=== PATIENT | male | born 1950 | race Two or more races ===

== ENCOUNTER 2025-01-27 15:55 | Emergency (ER) | payer OTHER, SELFPAY ==
--- NOTE | ~2025-01-27 | XR_ITS ---
EXAMINATION: XR CHEST CLINICAL INFORMATION: CP COMPARISON: None available. TECHNIQUE: 2 views of the chest were obtained. FINDINGS: The cardiac, hilar, and mediastinal contours are normal. Lungs demonstrate mild linear atelectasis or scarring in the lingular segment. Lungs otherwise clear. There is no pneumothorax or pleural effusion. There is no focal osseous or soft tissue abnormality. XR/XR chest 2V IMPRESSION: Mild linear scarring or atelectasis in the lingula. Otherwise, no active disease. Electronically signed by: Shade Hanks MD 01/27/2025 04:46 PM EDT
--- NOTE | ~2025-01-27 | CT_ITS ---
CLINICAL HISTORY: L CP, cough CT chest with contrast Comparison: None Findings: The heart is normal size. The visualized thyroid and mediastinum are unremarkable. Lingular subsegmental atelectasis is noted. Mild dependent changes are present within the lungs bilaterally. The visualized upper abdomen is unremarkable. The bones are intact. IMPRESSION: 1. Unremarkable chest CT. This document has been electronically signed by: Romeo Franz MD, PHD on 01/28/2025 02:21:32
--- NOTE | 2025-01-27 15:58 | ECG_ITS ---
Test Reason : CP Blood Pressure : */* mmHG Vent. Rate : 73 BPM Atrial Rate : 73 BPM P-R Int : 290 ms QRS Dur : 86 ms QT Int : 366 ms P-R-T Axes : 37 -5 39 degrees QTcB Int : 403 ms Sinus rhythm with 1st degree A-V block Otherwise normal ECG No previous ECGs available Referred By: Glo Granados Electronically Signed By: LIZZIE DUVALL
[2025-01-27 16:09] VITALS: BP 138/68; PULSE 73; RESP 16; TEMP 36.9; O2SAT 98; BMI 30.7
--- NOTE | 2025-01-27 16:09 | ED.CHESTPAIN ---
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 He reports onset of left anterior chest pain at approximately 15:00 today while he was sitting down resting. He notices the pain to be worse with deep inspiration, cough, palpation of the chest, and with exertion while walking around. He does state that recently has been experiencing a nonproductive cough. He does state that since his arrival to the ED his pain has resolved, he does not currently have this pain. He denies headache, dizziness, lightheadedness, shortness of breath or difficulty breathing, nausea, vomiting, abdominal pain, fevers, chills. Related Data Allergies Allergy/AdvReac Type Severity Reaction Status Date / Time duloxetine Allergy Rash Verified 01/27/25 16:12 tramadol Allergy Rash Verified 01/27/25 16:12 Review of Systems Review of Systems: Yes all other systems are reviewed and are negative PMFSH Past Medical History Attestation statement: The following information was validated with the patient. Source: old records reviewed Social History Social History Smoked in Last 30 Days: No Use of substances other than those prescribed or required for medical reasons: No Advance Directives: No Advance Directives Information Provided: No Do you have a plan to hurt others: No Plan Physical Exam Vital Signs: Vital Signs: Last Vital Signs Temp 97.8 F 01/28/25 02:19 Pulse 60 01/28/25 02:19 Resp 17 01/28/25 02:19 BP 143/72 H 01/28/25 02:19 Pulse Ox 98 01/28/25 02:19 O2 Del Method Room Air 01/28/25 02:19 BMI result Body Mass Index 30.7 Appearance: Alert.?Oriented to person, place and time. No acute distress.?Normal affect. Eyes: Pupils equal, round and reactive to light.? ENT: Pharynx normal.?? Neck: Normal inspection.? Neck supple.??No JVD. CVS: Heart sounds normal. Normal heart rate and rhythm.? Pulses normal.?? Respiratory: No respiratory distress.? Lung sounds clear to auscultation bilaterally?? Abdomen: Soft and non-tender. Normoactive bowel sounds. No pulsatile mass.?? Skin: Skin warm and dry.? Normal skin color.? ?? Extremities: No lower extremity edema.? No calf ttp? Neuro: Moves all extremities spontaneously. Sensation intact bilaterally. CN II-XII intact. No focal neuro deficits. Ambulates with normal steady gait. Course Course Course Narrative: This is an RME: Additional HPI, ROS, PE not included below will be deferred to primary provider. RME assessment and note performed by: Glo Granados PA-C This is a 53-[id number]-[id number]-Greek speaking male, cardiac stent on plavix and aspirin , diabetes on trulicity, HLD, chronic back pain,who presents to the ER with complaints of chest pain which started today. Pain worsens with palpation and with inspiration. Plan: EKG, CXR, viral swabs, further ER eval needed. Reevaluation(s) Reevaluation #1: CBC reveals leukocytosis 15,900 which may be inflammatory/ reactive in nature, mild anemia not meeting transfusion criteria, no thrombocytopenia. No electrolyte derangement. No MELCHOR. Overall unremarkable LFTs. High sensitive troponin negative x2, EKG nonischemic as per MDM. Viral serologies are negative. CXR is without acute pathology. CT of the chest was obtained to exclude acute pulmonary etiology as cause for pain and was unremarkable. he has remained pain-free while in the emergency department. Feel he is stable for discharge at this time outpatient follow-up with primary care doctor as scheduled tomorrow. Medications Administered Discontinued Medications Generic Name Dose Route Start Last Admin Trade Name Freq PRN Reason Stop Dose Admin Sodium Chloride 1,000 mls @ 999 mls/hr 01/27/25 23:45 01/28/25 00:16 Ns IV 01/28/25 00:45 999 mls/hr .Q1H1M MARINE Administration Iohexol 65 ml 01/28/25 01:23 01/28/25 01:24 Iohexol 350 Mg/Ml 100 Ml Infus..Btl IV 01/28/25 01:24 65 ml ONCE ONE Administration Medical Decision Making Medical Decision Making MDM Narrative: Patient is a 74-year-old male with past medical history of anxiety, anemia of chronic disease, CAD with prior cardiac stenting on Plavix and aspirin, type 2 diabetes, hypertension, polymyalgia rheumatica, hyperlipidemia, GERD who presents to the emergency department for evaluation with complaint of chest pain. At the time of my evaluation chest pain has resolved, although he does report recent cough as well. differential diagnosis to include costochondritis, muscular strain, ACS, pneumonia, viral illness, bronchitis. No evidence of volume overload or shock on exam. EKG has been obtained and is without evidence of STEMI, no acute ischemic pathology. Low suspicion for acute pulmonary embolism, wells low risk. No trauma or injury no tracheal deviation. Benign abdominal examination, unlikely acute hepatobiliary etiology /gastrointestinal /pancreatic pathology. Will obtain CBC to evaluate for leukocytosis/ anemia, CMP and lipase to evaluate for abnormal electrolytes /abnormal renal function/ abnormal hepatic/biliary function, EKG and troponin to evaluate for ischemia/ACS. Chest x-ray to evaluate for consolidation/ infiltrate/ mass/ pulmonary congestion, and reassessment Differential Diagnosis Differential Diagnoses: The differential diagnosis associated with the presentation includes (See narrative above) Admission/Observation Consideration of admission/observation: Escalation of care including admission/observation considered (See narrative above and course narrative for further detail) Lab Data [facility] Lab Attestation statement: I reviewed the patient's lab results. 01/27/25 16:25 01/27/25 16:25 Labs: Lab Results 01/27/25 01/27/25 Range/Units 16:25 23:36 WBC 15.9 H (4.8-10.8) X10*3/uL RBC 4.03 L (4.60-5.80) X10*6/uL Hgb 12.8 L (14.0-18.0) g/dl Hct 36.2 L (42.0-52.0) % MCV 89.8 (80.0-98.0) fL MCH 31.8 (27.0-33.0) pg MCHC 35.4 (31.0-36.0) g/dl RDW 12.6 (11.0-16.0) % Plt Count 289 (160-400) X10*3/uL MPV 9.0 L (9.4-12.4) fL Immature Gran % (Auto) 0.8 H (0.0-0.4) % Neut % (Auto) 82.5 H (45-73) % Lymph % (Auto) 11.4 L (20-40) % [place] % (Auto) 5.2 (2-11) % Eos % (Auto) 0.0 (0-4) % Baso % (Auto) 0.1 (0-2) % Lymph # (Auto) 1.8 (1.2-4.9) X10*3/uL [place] # (Auto) 0.8 (0.1-1.2) X10*3/uL Eos # (Auto) 0.0 (0.0-0.4) X10*3/uL Baso # (Auto) 0.0 (0.0-0.2) X10*3/uL Abs Immat Gran (auto) 0.12 H (0.00-0.03) X10*3/uL Absolute Neuts (auto) 13.1 H (2.0-8.3) x10*3/uL Absolute Nucleated RBC 0.000 (0.0-0.012) X10*3/uL Nucleated RBC % (auto) 0.0 (0.0-0.2) /100WBC Sodium 138 (135-145) mmol/L Potassium 5.0 (3.3-5.1) mmol/L Chloride 107 (96-108) mmol/L Carbon Dioxide 25 (22-29) mmol/L Anion Gap 11 L (12-20) BUN 18 H (9-16) mg/dL Creatinine 1.11 (0.5-1.4) mg/dL Estim Creat Clear Calc 61.9 Estimated GFR > 60 Random Glucose 196 H (60-115) mg/dL Calcium 9.5 (8.4-10.2) mg/dL Magnesium 1.7 (1.6-2.6) mg/dL Total Bilirubin 0.4 (0.0-1.0) mg/dL Direct Bilirubin 0.1 (0.0-0.5) mg/dL AST 25 (5-37) U/L ALT 44 H (0-40) U/L Alkaline Phosphatase 63 (39-117) U/L Troponin I High Sens 2.9 < 2.7 (<3.5-35.0) ng/L Total Protein 7.1 (6.5-8.0) g/dL Albumin 4.3 (3.5-5.0) g/dL Influenza Type A (PCR) NEGATIVE (Negative) Influenza Type B (PCR) NEGATIVE (Negative) RSV RNA Qual (PCR) NEGATIVE (Negative) SARS-CoV-2 RNA (RT-PCR) NEGATIVE (Negative) Independent Interpretation I performed an independent interpretation of an: EKG ( EKG reveals a sinus rhythm with first-degree AV block, ventricular rate of 73, QTC 403, no ST-elevation.) Radiology Impression Discussion of test interpretation with radiology: I have reviewed the radiologist's reading. Radiologist Impression: 2 views of the chest were obtained. FINDINGS: The cardiac, hilar, and mediastinal contours are normal. Lungs demonstrate mild linear atelectasis or scarring in the lingular segment. Lungs otherwise clear. There is no pneumothorax or pleural effusion. There is no focal osseous or soft tissue abnormality. XR/XR chest 2V IMPRESSION: Mild linear scarring or atelectasis in the lingula. Otherwise, no active disease. CT chest with contrast Comparison: None Findings: The heart is normal size. The visualized thyroid and mediastinum are unremarkable. Lingular subsegmental atelectasis is noted. Mild dependent changes are present within the lungs bilaterally. The visualized upper abdomen is unremarkable. The bones are intact. IMPRESSION: 1. Unremarkable chest CT. Independent Historian Clinical information obtained from an independent historian. History obtained from or confirmed by: Spouse External Record Review External record reviewed: Outpatient record Chronic Conditions Patient?s care impacted by: Other ( See narrative above) Discharge Plan Discharge Clinical Impression: Atypical chest pain Patient Disposition: Home, Self-Care Instructions: Chest Pain (ED) Additional Instructions: Follow-up with your primary care doctor as scheduled tomorrow. Please make them aware that you were seen in the emergency department for chest pain. Return to emergency department any new or worsening symptoms or concerns. Referrals: Leeann Ramey MD [Primary Care Provider] - Print Language: Greek
[2025-01-27 16:31] LABS: MANUAL DIFF FLAG NO
[2025-01-27 16:38] LABS: Basophils Percent Auto 0.1 % (0-2); Hematocrit 36.2 % (42.0-52.0); Hemoglobin 12.8 g/dl (14.0-18.0); Imm Gran Abs Auto 0.12 X10*3/uL (0.00-0.03); Imm Gran Pct Auto 0.8 % (0.0-0.4); Lymphocytes Absolute Auto 1.8 X10*3/uL (1.2-4.9); Lymphocytes Percent Auto 11.4 % (20-40); Mean Corpuscular HGB Conc 35.4 g/dl (31.0-36.0); Mean Corpuscular Hemoglobin 31.8 pg (27.0-33.0); Mean Corpuscular Volume 89.8 fL (80.0-98.0); Monocytes Absolute Auto 0.8 X10*3/uL (0.1-1.2); Monocytes Percent Auto 5.2 % (2-11); Neutrophils Absolute Auto 13.1 x10*3/uL (2.0-8.3); Neutrophils Percent Auto 82.5 % (45-73); Platelet Count 289 X10*3/uL (160-400); Red Blood Count 4.03 X10*6/uL (4.60-5.80); Red Cell Distribution Width 12.6 % (11.0-16.0); White Blood Count 15.9 X10*3/uL (4.8-10.8)
[2025-01-27 17:08] LABS: Troponin-I High Sensitivity 2.9 ng/L (<3.5-35.0)
[2025-01-27 17:25] LABS: Albumin Level 4.3 g/dL (3.5-5.0); Alkaline Phosphatase 63 U/L (39-117); Anion Gap 11 (12-20); Aspartate Amino Transferase 25 U/L (5-37); Bilirubin Direct 0.1 mg/dL (0.0-0.5); Bilirubin Total 0.4 mg/dL (0.0-1.0); Blood Urea Nitrogen 18 mg/dL (9-16); Calcium 9.5 mg/dL (8.4-10.2); Carbon Dioxide 25 mmol/L (22-29); Chloride 107 mmol/L (96-108); Creatinine Clr Calc Pharmacy 61.9; Estimated Glomerular Filt Rate > 60; Glucose Random 196 mg/dL (60-115); Magnesium 1.7 mg/dL (1.6-2.6); Sodium 138 mmol/L (135-145); Total Protein 7.1 g/dL (6.5-8.0)
[2025-01-27 18:08] LABS: Alanine Aminotransferase 44 U/L (0-40)
[2025-01-27 18:12] LABS: Influenza A PCR NEGATIVE (Negative); Influenza B PCR NEGATIVE (Negative); Resp Syncy Virus RNA Qual PCR NEGATIVE (Negative); SARS COV2 PCR INHOUSE NEGATIVE (Negative)
[2025-01-27 22:02] VITALS: BP 147/73; PULSE 64; RESP 22; TEMP 36.6; O2SAT 98
--- OUTSIDE RECORDS SUMMARY | 2025-01-27 22:32 | XMS_ITS | Encounter Summary ---
Author Organization [facility] Address [address] [place] [address] Care Team Providers Care Delivery Room Supervisor Name Role Phone Leenan Ramey MD Primary Care Provider [phone] Reason for Visit * Reason Onset Date Comments Medication Problem 01/08/2025 Encounter Details Date Type Department Care Team ([facility] st Contact Info) Description 01/08/2025 Telephone Adult Medicine [address] [phone] Leeann Ramey MD [address] [place] [id number] Medication Problem Social History Tobacco Use Types Packs/Day Years Used Date Smoking Tobacco: Former Cigarettes 4 56.7 S tarted: 05/26/1968 Smokeless Tobacco: Never Alcohol Use Standard Drinks/Week Comments No 0 (1 standard drink = 0.6 oz pur e alcohol) Sex and Gender Information Value Date Recorded Sex Assigned at Not on file Legal Sex Male 5:42 PM EST Gender Identity Not on file Sexual Orientation Not on file documented as of this encounter Progress Notes * Lorraine Benitez RN - 01/14/2025 1:41 PM EDT I spoke to Tierra from [place], [place]. She asked for clearance documentation to be sentto their fax. I tried twice and the faxes didn't go through. I called back and was given an alternative number ([phone]). Faxed and confirmation received. * Aditi Carlos NP - 01/14/2025 10:19 AM EDT Patient may hold Plavix and aspirin if absolutely required for spinal injection and resume as soon as possible under the discretion of [facility] provider. * Lorraine Benitez RN - 01/13/2025 4:11 PM EDT Pt is having an injection and [facility]. They want pt to stop Plavix and ASA 7 days before injection and would like instructions for resuming meds after injection * Nona Chapman RN - 01/13/2025 4:06 PM EDT Will send to cardiology to advise pt * Leeann Ramey MD - 01/13/2025 11:54 AM EDT Patient on these for CAD, will defer to cardiology regarding this * Nona Chapman RN - 01/08/2025 3:24 PM EDT Pt having an injection and [facility] wants pt to stop Plavix and ASA 7 days before injection , also instructions for resuming meds after injection * Maria Esther Martinez MA - 01/08/2025 3:15 PM EDT Please triage. * Candice Pittman 01/08/2025 11:48 AM EDT [facility] is requesting to stop medication for several days prior to injection. Patient needs to know if this ok before they schedule appointment. documented in this encounter Plan of Treatment Upcoming Encounters Date Type Department Care Team (Late st Contact Info) Description 01/29/2025 2:00 PM EDT Office Visit [facility] - [address] [phone] Leeann Ramey MD [address] [place] [address] 04/28/2025 2:30 PM EDT Office Visit Endocrinology [address] [phone] Sandy Corral PA [address] [place] [address] documented as of this encounter Visit Diagnoses Not on filedocumented in this encounter Care Teams Delivery Room Supervisor Relationship Specialty Start Date End Date Leeann Ramey MD [address] [place] [address] PCP - General 02/28/23 documented as of this encounter
--- OUTSIDE RECORDS SUMMARY | 2025-01-27 22:32 | XMS_ITS | Encounter Summary ---
Author Organization [facility] Address [address] [place] [address] Care Team Providers Care Dicer Operator Name Role Phone Leeann Ramey MD Primary Care Provider [phone] Reason for Visit * Reason Onset Date Comments Chest Pain 01/27/2025 Little chestpain Encounter Details Date Type Department Care Team (Late st Contact Info) Description 01/27/2025 Telephone [facility] Cardiology [facility] [address] [place] [address] [place] [phone] Alber Hardy MD [address] [place] [address] [address] [place] [address] Chest Pain (Little chestpain) Social History Tobacco Use Types Packs/Day Years [...] Progress Notes * Lorraine Benitez RN - 01/27/2025 3:15 PM EDT Sincere Gallardo is a 74 y.o. male, followed by Dr. Paz/ [facility] Brenda Carlos with cardiac history of CAD post stent to mid LAD April 2010, HTN, and HLD. Patient's spouse calling with pt present to report onset of left sided chest pain, describes as a muscle pain, that started an hour ago. He feels the chest pain on exertion and rest. Pt took Nitro x 2 around 3 PM and reported the chest pain is still present, but minimal. He denies nausea, vomiting,diaphoresis, shortness of breath, dizziness, and lightheadedness. We went over his cardiac medications and he reports compliance with them- no missed doses. Denies recent illness. I advised pt he should seek immediate evaluation in the ER via ambulance to rule out a cardiac event. He voiced understanding and agreeable with the plan. I also advised calling our office once he is discharged. documented in this encounter Plan of Treatment Upcoming Encounters Date Type Department Care Team (Late st Contact Info) Description 01/29/2025 2:00 PM EDT Office Visit [facility] - [address] [phone] Leeann Ramey MD [address] [place] [address] 04/28/2025 2:30 PM EDT Office Visit Endocrinology [address] [phone] Sandy Corral PA [address] [place] [address] documented as of this encounter Visit Diagnoses Not on filedocumented in this encounter Care Teams Dicer Operator Relationship Specialty Start Date End Date Leeann Ramey MD [address] [place] [address] PCP - General 02/28/23 documented as of this encounter
--- OUTSIDE RECORDS SUMMARY | 2025-01-27 22:32 | XMS_ITS | Clinical Summary ---
Author Organization [facility] Address [address] [place] [address] Care Team Providers Care Tools And Parts Attendant Name Role Phone Unavailable Primary Care Provider Unavailabl e Source Comments PLEASE NOTE, if this patient is a minor, it may be UNLAWFUL to discuss sensitive information that is contained in these records (such as FAMILY PLANNING, MENTAL HEALTH or SUBSTANCE ABUSE) with the minor patient's parent or other person without the patient's specific authorization.[facility] Medications QVAR 80 mcg/actuation inhaler INHALE 1 PUFF INTO THE LUNGS TWICE DAILY 8.7 g 0 4 Active nabumetone (RELAFEN) 750 mg tablet TAKE 1 TABLET BY MOUTH TWICE DAILY.MUST CALL CLINIC FOR APPOINTMENT WITH DOCTOR KOO 190 Tab 0 4 Active aspirin 81 mg EC tablet Take 1 Tab by mouth once daily. 30 Tab 5 4 Active isosorbide mononitrate (IMDUR) 30 mg 24 hr tablet Take 1 Tab by mouth every morning. Swallow whole. Do not break, crush or chew. 90 Tab 0 4 Active nitroGLYCERIN (NITROSTAT) 0.[address] 1 tablet under the tongue every 5 (five) minutes as needed for chest pain. Up to 3 doses, if no relief call 911. 30 tablet 3 4 Active enalapril (VASOTEC) 20 mg tablet TAKE 1 TABLET BY MOUTH DAILY 90 Tab 0 4 Active omeprazole (PRILOSEC) [address] capsule TAKE 1 CAPSULE BY MOUTH EVERY MORNING BEFORE BREAKFAST. DO NOT CRUSH OR CHEW 30 Cap 0 5 Active Immunizations Immunization Administration Dates Next Due Moderna COVID-19 Vaccine, re d cap blue label, 12+ Primary Series 10/31/2021,03/01/2021,02/01/2021 Social History Tobacco Use Types Packs/Day Years Used Date Smoking Tobacco: Never Assessed Social Connections Answer Date Recorded Social Connections and Isolation 0 02/01/2021 Financial Resource Strain Answer Date R ecorded Financial Resource Strain 0 2020 Stress Answer Date Recorded Stress 0 02/01/2021 Physical Activity Answer Date Recorded Physical Activity 0 02/01/2021 Food Insecurity Answer Date Recorded Food 0 02/01/2021 Transportation Needs Answer Date Record ed Transportation 0 02/01/2021 Housing Stability Answer Date Recorded Housing 0 02/01/2021 Safety and Environment Answer Date Sagar rded Safety 0 02/01/2021 Utilities Answer Date Recorded Utilities 0 02/01/2021 Employment Answer Date Recorded Employment 0 02/01/2021 Sex and Gender Information Value Date Recorded Sex Assigned at Not on file Legal Sex Male 4:16 PM PDT Gender Identity Not on file Sexual Orientation Not on file Plan of Treatment Health Maintenance Due Date Last Done Comments Hepatitis C Screening 1952 Lipid Screening 1952 Tobacco Screening 1952 Hypertension Screening (#1) 1970 Medicare Annual Wellness Visit 1970 CT Colonography 1997 Colonoscopy 1997 Colorectal Cancer Screening 1997 FIT/gFOBT 1997 Fecal DNA 1997 Flexible Sigmoidoscopy 1997 Imm-Zoster, Recombinant (1 of 2) 2002 Abdominal Aortic Aneurysm Screening 2017 Falls Prevention 2017 Imm-DTaP/Tdap/Td (2 - Td or Tdap) 12/09/2023 014 [id number] ( season) 2024 10/31/2021, 03/01/2021, 02/01/2021 Imm-Influenza (#1) 2024 09/16/2021, 1 11/22/2018, 07/22/2019, Additional history exists Alcohol and Drug Screen 10/29/2024 Depression Annual Screen 10/29/2024 Imm-Pneumococcal 65+ Completed 09/16/2021, 12/11/2019, 12/09/2013 Insurance [facility] Member Subscriber Plan / Payer (Ef fective 2021-Present) Name:Zeb Gallardoo Relation to Subscriber:Self Name:Zeb Gallardoo Payer ID:[id number] Group ID:Not on file Type:Indemnity Address: [place] [address] [address] [id number]
--- OUTSIDE RECORDS SUMMARY | 2025-01-27 22:32 | XMS_ITS | Clinical Summary ---
Author Organization [address] Address [address] [place] [phone] Phone Care Team Providers Care Tool Planner Name Role Phone Leeann Ramey MD Primary Care Provider [phone] Allergies Active Allergy Reactions Criticality Noted Date Comments Doxycycline 07/11/2013 Duloxetine 08/28/2016 Other Reaction(s): Rash/Dermatitis Hydrocodone-Acetaminophen Itching 06/21/2015 Hydrocodone-Guaifenesin 01/07/2025 Tramadol Hcl Itching 06/21/2015 Medications sodium chloride (AYR) 0.65 % nasal drops 1 [place] by Nasal route as needed for Congestion. 4 Active rosuvastatin (CRESTOR) 40 mg tablet Take 1 tablet (40 mg total) by mouth 1 (one) time each day. Active omega-3 acid ethyl esters (LOVAZA) 1 gram capsule Take by mouth daily. Active nystatin (MYCOSTATIN) cream Apply to affected area as needed for groin rash 4 025 Active nitroglycerin (NITROSTAT) 0.4 mg SL tablet Take one tablet under tongue as needed for chest pain every 5 minutes. Max of 3 doses call 911 4 Active acetaminophen (TYLENOL 8 HOUR) 650 mg 8 hr tablet Take 1 Tablet by mouth 2 times daily as needed for Pain. 4 Active amLODIPine (NORVASC) 5 mg tablet Take 1 tablet (5 mg total) by mouth 1 (one) time each day. 3 Active ascorbic acid (VITAMIN C) 1,000 mg tablet Take 1,000 mg by mouth daily. Active carvediloL (COREG) 3.125 mg tablet Take 1 tablet (3.125 mg total) by mouth every 12 (twelve) hours. Active CHOLECALCIFEROL , VITAMIN D3, ORAL Take by mouth daily. Active clotrimazole (LOTRIMIN) 1 % cream Apply 1 Application topically 2 (two) times a day. 4 Active diclofenac (VOLTAREN) 1 % topical gel APPLY 4 GRAMS TO AFFECTED AREA TOPICALLY DAILY. Active fluticasone propionate (FLONASE) 50 mcg/actuation nasal spray Administer 2 sprays into each nostril 1 (one) time each day. Active folic acid (FOLVITE) 1 mg tablet Take 1 tablet (1,000 mcg total) by mouth 1 (one) time each day. 4 Active FREESTYLE LANCETS MISC Use to check blood sugar three times a day 3 Active blood sugar diagnostic (FreeStyle Lite Strips) test strip USE TO CHECK BLOOD SUGAR THREE TIMES A DAY 4 Active hydrOXYzine HCL (ATARAX) 25 mg tablet Take 1 tablet (25 mg total) by mouth every 8 (eight) hours if needed. 4 Active isosorbide mononitrate (IMDUR) 60 mg 24 hr tablet Take 1 tablet (60 mg total) by mouth 2 (two) times a day. Active loratadine (CLARITIN) 10 mg tablet Take 1 tablet (10 mg total) by mouth 1 (one) time each day. Active meloxicam (MOBIC) 7.5 mg tablet Take 1 tablet (7.5 mg total) by mouth 1 (one) time each day if needed. 4 Active MULTIVITAMIN WITH MINERALS ORAL Take by mouth daily. 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 2 mL 5 5 Active blood-glucose meter kit Use to check blood sugar three times a day 1 each 5 Active SITagliptin phosphate (Januvia) 100 mg tablet TAKE 1 TABLET BY MOUTH EVERY DAY 90 tablet 4 025 Discontin ued(Formu lion change) blood-glucose meter kit Use to check blood sugar three times a day 3 025 Discontin ued(Reord er) blood-glucose meter (FREESTYLE LITE METER [facility]) Use to test blood sugar daily 3 025 Discontin ued(Dupli bhanu order) glipiZIDE (GLUCOTROL XL) 10 mg 24 hr tablet TAKE 1 TABLET BY MOUTH EVERY DAY DO NOT CRUSH, CHEW, OR SPLIT 90 tablet 5 025 Discontin ued(Formu lion change) Active Problems Problem Noted Date Diagnosed Date Abdominal pain 10/18/2024 Scrotal pain 10/18/2024 Nasal congestion 12/07/2023 Paranasal sinus disease 12/07/2023 PMR (polymyalgia rheumatica) 10/17/2023 Poorly controlled type 2 diabetes mellitus 02/28 Bilateral low back pain with bilateral sciatica 09/26/2022 Overview (10/18/2024): Last Assessment & Plan: Mr. Gallardo has been troubled by back pain for many years. He has multilevel lumbar degenerative disc disease. He had an injection years ago that did not provide any relief. He has tried medications without relief. He has never been to physical therapy and was so we will set him up for that. I also gave him some information on acupuncture. We discussed yoga, NSAIDs, and an inversion table all as reasonable conservative treatments. I explained that surgery for this problem would involve a lumbar fusion. I further explained that with multiple levels involved, the likelihood of successful relief diminished with the each additional involved level. I told him that any surgical intervention should be saved for a last resort. He is welcome to follow-up with us on an as-needed basis. Chronic midline low back pain with left-sided sc iatica 08/13/2019 Overview (10/18/2024): Last Assessment & Plan: Mr. Gallardo has had ongoing issues with low back pain and radiation into the left leg. At his last visit he was given a prescription for physical therapy but he was not able to make time for it at that time. He would like to go to physical therapy now and is requesting a new prescription. I did supply that for him. He said he really was not interested in surgery at this time I do not find anything on exam or imaging to impose surgery upon him. He can follow-up with us on an as-needed basis. Heartburn 12/14/2017 Chronic knee pain 07/11/2013 Diabetes mellitus, type II 07/11/2013 Elbow pain, chronic 07/11/2013 HLD (hyperlipidemia) 07/11/2013 Overview (10/18/2024): IMO update Last Assessment & Plan: Patient has a history of hyperlipidemia as well as a history of coronary artery disease. His last LDL cholesterol was noted to be at goal at 47. Mildly elevated triglycerides and we discussed ensuring heart healthy diet and lifestyle to reduce his triglyceride levels. He will continue his current dose of rosuvastatin and ezetimibe as prescribed. HTN (hypertension), benign 07/11/2013 Overview (10/18/2024): Last Assessment & Plan: Patient's blood pressure is well-controlled today. He will continue his current antihypertensive medication regimen as prescribed. Shoulder pain, bilateral 07/11/2013 Vitamin B12 deficiency 07/11/2013 Vitamin D deficiency 07/11/2013 Resolved Problems Problem Noted Date Diagnosed Date Resolved Date CAD (coronary artery disease) 07/11/2013 10/18/2024 Overview (10/18/2024): Last Assessment & Plan: Patient has a history of coronary artery disease status post stent to the mid LAD in April 2010 at [facility]. He underwent a left heart catheterization in January 2023 which showed patent prior LAD stent, moderate proximal circumflex stenosis with normal/nonischemic IFR. The patient denies any exertional symptoms. Since I last saw him in July, he reports 1 isolated episode of dizziness and chest discomfort. He has not had any further episodes. He continues on cardioprotective medical therapy with aspirin, rosuvastatin, carvedilol, and isosorbide mononitrate. Given recent orthostasis and blood pressure today, will not make any changes to his antianginal therapies. He will notify me of any changes in his symptoms. Encounters Date Type Department Care Team Description 01/27/2025 Telephone [facility] [address] [place] [address] BrandiAlber Carter MD Chest Pain (Little chestpain) 01/08/2025 Telephone Adult Medicine [address] [phone] Leeann Ramey MD Medication Problem 01/07/2025 3:00 PM EDT Consult Endocrinology - [address] [phone] Sandy Corral PA Poorly controlled type 2 diabetes mellitus (CMS/HCC) (Primary Dx); Hyperlipidemia, unspecified hyperlipidemia type; HTN (hypertension), benign 12/03/2024 9:45 AM EST Office Visit Adult Medicine [address] [phone] Giovanny Pereira PA Acute bilateral low back pain without sciatica (Primary Dx); Frequency of micturition; Poorly controlled type 2 diabetes mellitus (CMS/HCC); Screening for prostate cancer 12/01/2024 Telephone Adult Medicine [address] [phone] Leeann Ramey MD Back Pain from Last 3 Months Immunizations Name Administration Dates Next Due Influenza trivalent, 0.5mL ( Fluad) 65yo and older 08/03/2023,09/16/2021,09/22/2019,07/22 Influenza trivalent, 0.5mL, preservative free (Fluarix; FluLaval; Fluzone) ages 6mo and older (Afluria) 3 years and older 08/28/2016,09/21/2015,08/18/2014,07/11 Moderna SARS-CoV-2 COVID-19, mRNA, LNP-S, preservative free 10/31/2021 Pneumococcal conjugate 13 va lent (Prevnar 13, PCV13) 2mo and older 12/11/2019 Pneumococcal polysaccharide 23 valent (Pneumovax 23) 2yo and older 09/16/2021,12/09/2013 Tdap Tetanus diptheria acell ular pertussis (Boostrix; Adacel) 7yo and older 12/09/2013 Surgical History Surgery Date Site/Laterality Comments OTHER SURGICAL HISTORY PROCEDURE: DENIES PREVIOUS SURGERY COLONOSCOPY PROCEDURE: HISTORICAL COLONOSCOPY COLONOSCOPY PROCEDURE: HISTORICAL COLONOSCOPY; COMMENT: Performed 2012 Medical History Medical History Date Comments CAD in platinum artery 07/11/2013 DX:CAD in n ative artery HTN (hypertension), benign 07/11/2013 DX:HT N (hypertension), benign Uncontrolled type 2 diabetes mellitus with circulatory disorder, without long-term current use of insulin 08/28/2016 DX:Uncontrolled type 2 diabetes mellitus with circulatory disorder, without long-term current use of insulin Heartburn 12/14/2017 DX:Heartburn Shoulder pain, bilateral 07/11/2013 DX:Shou lder pain, bilateral Scrotal pain DX:Scrotal pain Abdominal pain DX:Abdominal meir n Colitis due to Salmonella species DX:Colitis due to Salmonella species HLD (hyperlipidemia) 07/11/2013 Social History Tobacco Use Types Packs/Day Years [...] on file Sexual Orientation Not on file Obstetrics History Last Filed Vital Signs Vital Sign Reading Time Taken Comments Blood Pressure 112/64 01/07/2025 3:06 PM EDT C Pulse 64 01/07/2025 3:06 PM EDT Temperature 36.4 ??C (97.6 ??F) 01/07/2025 3:06 PM ED T Respiratory Rate 14 12/03/2024 9:34 AM EST Oxygen Saturation 96% 01/07/2025 3:06 PM EDT Inhaled Oxygen Concentration - - Weight 87.5 kg (193 lb) 01/07/2025 3:06 PM EDT Height 170.2 cm (5' 7 ) 01/07/2025 3:06 PM EDT Body Mass Index 30.23 01/07/2025 3:06 PM EDT Plan of Treatment Upcoming Encounters Date Type Department Care Team (Late st Contact Info) Description 01/29/2025 2:00 PM EDT Office Visit Adult Medicine [address] [phone] Leeann Ramey MD [address] [place] [address] 04/28/2025 2:30 PM EDT Office Visit Endocrinology [address] [phone] Sandy Corral PA [address] [place] [phone] Health Maintenance Due Date Last Done Comments Diabetes: Annual Foot Exam 1962 Zoster Vaccines (1 of 2) 2002 Falls Risk Assessment 10/07/2022 Medicare Annual Wellness Visit 10/07/2022 Social Influencers of Health Screening 10/07/2022 DTaP,Tdap,and Td Vaccines (2 - Td or Tdap) 12/09/2023 12/09/2013 COVID-19 Vaccine ( season) 2024 10/31/2021, 03/01/2021, 02/01/2021 Depression Screening 11/09/2024 11/09/2023 Diabetes: Blood Sugar Control Test (HGBA1C) 06/02/2025 12/03/2024, 08/27/2024, 08/27/2024, Additional history exists Influenza Vaccine (Season Ended) 2025 08/03/2023, 09/16/2021, 09/22/2019, Additional history exists Diabetes: Annual Urine Albumin-Creatinine Ratio (uACR) 08/27/2025 08/27/2024 Diabetes: Annual GFR (Glomerular Filtration Rate) 12/03/2025 12/03/2024, 08/27/2024, 08/27/2024, Additional history exists Hypertension/CHF/CAD Annual BMP Blood Test 12/03/2025 12/03/2024, 08/27/2024, 08/27/2024, Additional history exists Diabetes: Annual Retina Eye Exam 12/19/2025 12/19/2024, 12/12/2023 Colorectal Cancer Screening: Colonoscopy 03/09/2026 03/09/2023 RSV Immunization Patients 60+ Years Old (1 - 1-dose 75+ series) 2027 Cholesterol Screening (Lipid Panel) 08/27/2029 08/27/2024, 08/27/2024 Hepatitis C Screening Completed 05/29/2014 Abdominal Aortic Aneurysm (AAA) Screen Completed 05/30/2021, 12/25/2019 Pneumococcal Vaccine: 50+ Years Completed 09/16/2021, 12/11/2019, 12/09/2013 HIB Vaccines Aged Out No longer eligi ble based on patient's age to complete this topic HPV Vaccines Aged Out No longer eligi ble based on patient's age to complete this topic Hepatitis A Vaccines Aged Out No long er eligible based on patient's age to complete this topic Hepatitis B Vaccines Aged Out No long er eligible based on patient's age to complete this topic IPV Vaccines Aged Out No longer eligi ble based on patient's age to complete this topic MMR Vaccines Aged Out No longer eligi ble based on patient's age to complete this topic Meningococcal ACWY Vaccine Aged Out N o longer eligible based on patient's age to complete this topic Meningococcal B Vacine Aged Out No lo nger eligible based on patient's age to complete this topic RSV Immunization Patients Under 20 months Aged Out No longer eligible based on patient's age to complete this topic Varicella Vaccines Aged Out No longer eligible based on patient's age to complete this topic Procedures Procedure Name Priority Date/Time Associated Diagnosis Comments POC GLUCOSE Routine 01/07/2025 3:09 PM EDT Poorly controlled type 2 diabetes mellitus (CMS/HCC) POC URINE NON-AUTO W/O MICRO Routine 12/03/2024 10:27 AM EST Acute bilateral low back pain without sciatica Frequency of micturition POC GLUCOSE Routine 12/03/2024 10:25 AM EST Poorly controlled type 2 diabetes mellitus (CMS/HCC) HEMOGLOBIN A1C Routine 12/03/2024 10:24 AM EST Poorly controlled type 2 diabetes mellitus (CMS/HCC) BASIC METABOLIC PANEL Routine 12/03/2024 10:24 AM EST Poorly controlled type 2 diabetes mellitus (CMS/HCC) Frequency of micturition PROSTATE SPECIFIC ANTIGEN DIAGNOSTIC Routine 12/03/2024 10:24 AM EST Screening for prostate cancer Frequency of micturition URINE ALBUMIN CREATININE RATIO Routine 08/27/2024 LIPID PANEL Routine 08/27/2024 DIABETES EYE EXAM Routine 12/12/2023 DEPRESSION SCREENING Routine 11/09/2023 COLONOSCOPY Routine 03/09/2023 ABDOMINAL AORTIC ANEURYSM SCRREN Routine 05/30/2021 HEPATITIS C SCREENING Routine 05/29/2014 from Last 3 Months or Most Recently Relevant to Health Maintenance Results * POC glucose manually resulted (01/07/2025 3:09 PM EDT) Only the most recent of2 resultswithin the time period is included. Glucose POC 157 mg/dL Comment:Non fasting Blood Capillary blood specimen / Unknown 01/07/2025 3:09 PM EDT Sandy LYNNE POINT OF CARE TEST ENTER/ED IT ORDERABLES Final Result * POC Urine Non-Auto W/O Micro (12/03/2024 10:27 AM EST) Pathologist [facility] Glucose UA POC Negative Negative, Trace mg/dL Leukocytes UA POC Negative Negative Nitrite UA POC Negative Negative Urobilinogen UA POC 1.0 E.U./dL mg/dL Protein UA POC Negative Negative, >=300 mg/dL PH UA POC 5.0 Blood UA POC Negative Negative, Large Specific [place] UA POC 1.010 Ketones UA POC Negative Negative, Trace Bilirubin UA POC Negative Negative, Small Appearance UA POC Clear Color UA POC Dark Yellow Urine Urine specimen obtained by clean catch procedure / Unknown 12/03/2024 10:27 AM EST Giovanny LYNNE POINT OF CARE TEST ENTER/EDIT ORDERABLES Final Result * Prostate specific antigen diagnostic (12/03/2024 10:24 AM EST) [facility] PSA 1.36 0.00 - 4.00 ng/mL LAB CHEMISTRY METHOD 12/03/2024 2:48 PM EST [facility] Blood Venous blood specimen / Unknown Venipuncture / Unknown 12/03/2024 10:24 AM EST 12/03/2024 10:24 AM EST Narrative [facility] - 12/03/2024 2:48 PM EST The Siemens Advia Centaur Chemiluminescent Immunoassay is used. Results obtained with different assay methods or kits cannot be used interchangeably. Results cannot be interpreted as absolute evidence of the presence or absence of malignant disease. us Giovanny LYNNE LAB BLOOD ORDERABLES Final Res ult [facility] [address] [place] [address], * (ABNORMAL) Hemoglobin A1c (12/03/2024 10:24 AM EST) [facility] Hemoglobin A1C 9.3(H) <6.5 % LAB CHEMISTRY METHOD 12/03/2024 7:04 PM EST [facility] Mean Bld Glu Estim. 220 mg/dL LAB CHEMISTRY METHOD 12/03/2024 7:04 PM [facility] Blood Venous blood specimen / Unknown Venipuncture / Unknown 12/03/2024 10:24 AM EST 12/03/2024 10:24 AM EST Giovanny LYNNE LAB BLOOD ORDERABLES Final Res ult [facility] [address] [place] [address], * (ABNORMAL) Basic metabolic panel (12/03/2024 10:24 AM EST) [facility] Sodium 136 133 - 145 mmol/L LAB CHEMISTRY METHOD 12/03/2024 2:49 PM [facility] Potassium 4.4 3.5 - 5.5 mmol/L LAB CHEMISTRY METHOD 12/03/2024 2:49 PM [facility] Chloride 101 96 - 110 mmol/L LAB CHEMISTRY METHOD 12/03/2024 2:49 PM [facility] CO2 30 21 - 32 mmol/L LAB CHEMISTRY METHOD 12/03/2024 2:49 PM [facility] Anion Gap 5 3 - 11 LAB CHEMISTRY METHOD 12/03/2024 2:49 PM [facility] Glucose 169(H) 70 - 100 mg/dL LAB CHEMISTRY METHOD 12/03/2024 2:49 PM [facility] BUN 18 5 - 25 mg/dL LAB CHEMISTRY METHOD 12/03/2024 2:49 PM EST [facility] Creatinine 1.10 0.70 - 1.30 mg/dL LAB CHEMISTRY METHOD 12/03/2024 2:49 PM EST [facility] eGFR 71 >=60 mL/min/1. 73m2 LAB CHEMISTRY METHOD 12/03/2024 2:49 PM [facility] Comment:Calculation based on the??Chronic Kidney Disease Epidemiology Collaboration (CKD-EPI) equation refit??without adjustment for race. BUN/Creatinine Ratio 16.4 LAB CHEMISTRY METHOD 12/03/2024 2:49 PM [facility] Calcium 9.8 8.5 - 10.5 mg/dL LAB CHEMISTRY METHOD 12/03/2024 2:49 PM [facility] Blood Venous blood specimen / Unknown Venipuncture / Unknown 12/03/2024 10:24 AM EST 12/03/2024 10:24 AM EST Giovanny LYNNE LAB BLOOD ORDERABLES Final Res ult [facility] [address] [place] [address], * Urine Albumin Creatinine Ratio (08/27/2024) Pathologist [facility] Urine Albumin Creatinine Ratio ABSTRACTED Historical Provider HEALTH MAINTENANCE Final Result * Lipid panel (08/27/2024) Pathologist [facility] LDL/HDL Ratio 3 0 - 4 Triglycerides 150 0 - 150 mg/dL Cholesterol 140 0 - 200 mg/dL HDL 44 >=40 mg/dL LDL Cholesterol 66 0 - 100 mg/dL Blood Venous blood specimen / Unknown Historical Provider LAB BLOOD ORDERABLES Evelyn l Result * Diabetes Eye Exam (12/12/2023) Pathologist [facility] Diabetes: Annual Retina Eye Exam ABSTRACTED Historical Provider HEALTH MAINTENANCE Final Result * Depression Screening (11/09/2023) Depression Screening ABSTRACTED Historical Provider HEALTH MAINTENANCE Final Result * Colonoscopy (03/09/2023) Colonoscopy NO INTERPRETATION , ABSTRACTED Anatomical Region Laterality Modality Other Historical Provider HEALTH MAINTENANCE Final Result * Abdominal Aortic Aneurysm Screen (05/30/2021) Abdominal Aortic Aneurysm (AAA) Screening ABSTRACTED Anatomical Region Laterality Modality Other Historical Provider HEALTH MAINTENANCE Final Result * Hepatitis C Screening (05/29/2014) Hepatitis C Screening ABSTRACTED Historical Provider HEALTH MAINTENANCE Final Result from Last 3 Months or Most Recently Relevant to Health Maintenance Insurance AMIRA JANE [id number] [facility] MEDICARE Member Subscriber Plan / Payer (Ef fective 2023-Present) Name:Sincere Gallardo Relation to Subscriber:Self Name:Sincere Gallardo Payer ID:[id number] Group ID:Not on file Type:Not on file Address: [place] [address] [place] [phone] Care Teams Tool Planner Relationship Specialty Start Date End Date Leeann Ramey MD [address] [place], [place] [address] [address] PCP - General 02/28/23
--- OUTSIDE RECORDS SUMMARY | 2025-01-27 22:32 | XMS_ITS | Data Portability ---
Author Organization [employer] Address [address] [place] [address] Care Team Providers Care General Office Associate Name Role Phone HIM CCA OTHER LUCINDA MELENDEZ [facility] Primary Care Provider Assessment Encounter Date Assessment Date Assessment LastModified by Organization Details LastModified Time 10/20/2024 10/20/2024 Impression: 73yo/m who presents with nausea/vomiting and dizziness. History provided by patient and . For medic on scene, they state patient was in usual state of health. [place] well yesterday, went to bed normally last night. Awoke this morning and had 2 episodes of nausea/vomiting and went on to have dizziness or ligtheadedness symptoms. Symptoms present for approximately 1 hour. For medic in home patient is awake, alert, in no distress. No associated chest pain, dyspnea, palpitations. No associated headache, vision changes, slurred speech, or extremity numbness/weakness /paresthesias. Ambulating without ataxia. No associated abdominal pain, diarrhea, bloody stools. Exam shows patient awake, alert, neuro intact. Able to ambulate. Abdomen soft and nontender. CV RRR. Lungs CTAB. Dizziness symptoms are currently improved. They deny other ROS. Plan: Patient underwent EKG which shows 1st degree AV block, slight upsloping LAILA in v2+v3, no ST depressions, no STEMI. Given oral dose of zofran which resolved his nausea and vomiting. Patient monitored for 20-30 minutes by medic in home. Patient states feels well, no development of other symptoms, again no chest pain, dyspnea, palpitations. No focal neurologic symptoms, no headache or AMS, ambulating with steady gait, tolerating PO without difficulty and without abdominal pain. Unclear etiology of his symptoms at this time, patient and family would like to stay at home and continue to observe his symptoms and followup with PMD for recheck. Instructed to reach out immediately via 911 should he develop any acute worsening or change in symptoms which they understand. I considered other acute diagnoses such as ACS, CVA, cardiac dysrhythmia. Without any other associated signs or symptoms I believe this is less likely at this time. Given the abrupt nature of his symptoms and previous usual state of health, I don't believe POC laboratory testing would be of any utility. Given his otherwise re-assuring in home evaluation today, I believe it's reasonable that patient and family continue to monitor at home at this time. I overall have a lower suspicion for an occult emergency medical condition such as ACS, PE, aortic dissection, AAA, cardiac dysrhythmia, CVA. Instructed to reach out immediately with any acute worsening or change which they understand. Primary care, consider 24 hour followup for recheck. Disposition: We discussed the diagnostic uncertainty of home visits and the risk associated with this. In this case, the patient and I felt this to be an acceptable and reasonable amount of risk given the benefit of avoiding an ED visit. We discussed the need to seek care urgently/emergent ly in the setting of any new or worsening serious symptoms Not available 10/20/2024 11:45:59 Plan of Treatment Reminders Order Date Submit Date Provider Last Modified By Organization Details Last Modified Time Details Appointments None recorded. Lab None recorded. Referral None recorded. Procedures None recorded. Surgeries None recorded. Imaging electroca rdiogram 2023 [email or web address] [facility], [address] [place] [address], [phone], 09:47:35 Medication Orders ondansetr on 4 mg disintegr ating tablet 2023 [email or web address] [id number], [address] [place], [address], 11:35:17 ondansetr on 4 mg disintegr ating tablet 2023 [id number], [address] [place], [address], 11:48:13 Patient TargetsNo targets recorded. Patient InstructionsNo instructions recorded. Reason for Referral None Reported. Results Created Date Observation Date Name Description Value Unit Range Abnormal Flag Note LastModifiedBy Organization Detail LastModifiedTime 10/20/20 24 valdez barahonagr am No observ ation record ed. [email or web address] [address], [address], 10/20/2024 11:47:29 Result Notes None recorded. Procedures Surgical History None recorded. Imaging Results Imaging Date Name Status LastModified by Organization Details LastModified Time 10/20/2024 electrocardiogram completed [email or web address] [address], [address], 10/20/2024 11:47:29 Procedure Notes None recorded. Medical Equipment None Reported. Allergies Allergen ID Allergen Name Allergen Category Reaction Reaction Severity Criticality Documentation Date Start Date Code Code System Note Provider Name and Address Organization Details Recorded Time 09583 doxycycli ne Not available Not available Not available Not available 10/20/2024 3640 RxNorm Not Available [facility] 4 09:51:58 77957 duloxetin e medicatio n Not available Not available Not available 10/20/2024 20865 RxNorm Not Available [facility] - production 4 09:51:58 98842 tramadol medicatio n Not available Not available Not available 10/20/2024 88729 RxNorm Not Available [facility] - production 4 09:51:58 71876 acetamino phen / hydrocodo ne medicatio n Not available Not available Not available 10/20/2024 98434 2 RxNorm Not Available [facility] production 4 09:51:58 Medications Name Sig Start Date Stop Date Status Note LastModified by Organization Details LastModified Time Saline Mist 0.65 % nasal spray aerosol USE 1 SPRAY BY NASAL ROUTE NEEDED FOR CONGESTION active Not Available Not Available N ot Available trazodone 50 mg tablet TAKE 1 TABLET BY MOUTH EVERYDAY AT BEDTIME active Not Available Not Available No t Available cefpodoxime 200 mg tablet TAKE 1 TABLET BY MOUTH TWICE A DAY FOR 10 DAYS active Not Available Not Available No t Available valacyclovir 1 gram tablet TAKE 1 TABLET BY MOUTH 3 TIMES A DAY FOR 7 DAYS active Not Available Not Available N ot Available glipizide ER 10 mg tablet, extended release 24 hr TAKE 1 TABLET BY MOUTH EVERY DAY DO NOT CRUSH, CHEW, OR SPLIT active Not Available Not Available No t Available meloxicam 15 mg tablet TAKE 1 TABLET BY MOUTH ONCE DAILY NEEDED FOR PAIN active Not Available Not Available No t Available FreeStyle Lancets 28 gauge USE TO CHECK BLOOD SUGAR THREE TIMES A DAY active Not Available Not Available Not Available glipizide ER 5 mg tablet, extended release 24 hr TAKE 1 TABLET BY MOUTH EVERY DAY active Not Available Not Available No t Available clopidogrel 75 mg tablet TAKE 1 TABLET BY MOUTH EVERY DAY active Not Available Not Available No t Available sulfamethoxa zole 800 mg-trimethop rim 160 mg tablet TAKE 1 TABLET EVERY 12 HOURS BY ORAL ROUTE FOR 10 DAYS, FOR SINUS. active Not Available Not Available No t Available aspirin 81 mg tablet,delay ed release TAKE 1 TABLET BY MOUTH EVERY DAY active Not Available Not Available No t Available carvedilol 3.125 mg tablet TAKE 1 TABLET BY MOUTH EVERY 12 HOURS active Not Available Not Available No t Available acetaminophe n ER 650 mg tablet,exten ded release TAKE 1 TABLET BY MOUTH TWICE A DAY NEEDED FOR PAIN active Not Available Not Available No t Available meloxicam 7.5 mg tablet TAKE 1 TABLET BY MOUTH ONCE DAILY NEEDED FOR PAIN active Not Available Not Available No t Available isosorbide mononitrate ER 60 mg tablet,exten ded release 24 hr TAKE 1 TABLET BY MOUTH TWICE A DAY active Not Available Not Available No t Available prednisone 1 mg tablet TAKE 8 TABLETS BY MOUTH DAILY active Not Available Not Available Not Available nystatin 100,000 unit/gram topical cream APPLY TO AFFECTED AREA NEEDED FOR GROIN RASH active Not Available Not Available N ot Available lidocaine 5 % topical patch APPLY 1 TOPICALLY DAILY, FOR 7 DAYS,INSTR: REMOVE PATCHES AFTER 12 HOURS active Not Available Not Available No t Available nitroglyceri n 0.4 mg sublingual tablet TAKE ONE TABLET UNDER TONGUE NEEDED FOR CHEST PAIN EVERY 5 MINUTES. MAX OF 3 DOSES CALL 911 active Not Available Not Available No t Available omeprazole 20 mg capsule,omega yed release TAKE 1 CAPSULE BY MOUTH TWICE A DAY active Not Available Not Available No t Available montelukast 10 mg tablet TAKE 1 TABLET BY MOUTH EVERYDAY AT BEDTIME active Not Available Not Available No t Available hydroxyzine HCl 25 mg tablet TAKE 1 TABLET BY MOUTH EVERY 8 HOURS NEEDED FOR ITCHING active Not Available Not Available No t Available ondansetron 4 mg disintegrati ng tablet Place 1 tablet by translingua l route, for every 6 hours as needed for nausea. 2023 active Not Available Not Available Not Avai lable fluticasone propionate 50 mcg/actuatio n nasal spray,suspen karsten SPRAY 2 SPRAYS INTO EACH NOSTRIL EVERY DAY active Not Available Not Available No t Available metformin ER 500 mg tablet,exten ded release 24 hr TAKE 2 TABLETS BY MOUTH TWICE A DAY WITH MEALS active Not Available Not Available No t Available clotrimazole 1 % topical cream APPLY TO AFFECTED AREA TWICE A DAY active Not Available Not Available No t Available loratadine 10 mg tablet TAKE 1 TABLET BY MOUTH EVERY DAY active Not Available Not Available No t Available amoxicillin 875 mg-potassium clavulanate 125 mg tablet TAKE 1 TABLET BY MOUTH TWICE A DAY FOR 10 DAYS active Not Available Not Available No t Available ezetimibe 10 mg tablet TAKE 1 TABLET BY MOUTH EVERY DAY active Not Available Not Available No t Available rosuvastatin 40 mg tablet TAKE 1 TABLET BY MOUTH EVERY DAY active Not Available Not Available No t Available Januvia 50 mg tablet TAKE 1 TABLET BY MOUTH EVERY DAY active Not Available Not Available No t Available Januvia 100 mg tablet TAKE 1 TABLET BY MOUTH EVERY DAY active Not Available Not Available No t Available FreeStyle Lite Strips USE TO CHECK BLOOD SUGAR THREE TIMES A DAY active Not Available Not Available Not Available diclofenac 1 % topical gel APPLY 4 GRAMS TO AFFECTED AREA TOPICALLY DAILY. active Not Available Not Available No t Available Vitals Date Recorded Oxygen saturation Oxygen saturation in Arterial blood by Pulse oximetry Heart rate Body weight Respiratory rate Heart rate Body temperature Body height Systolic blood pressure Diastolic blood pressure Systolic blood pressure Diastolic blood pressure Provider Name and Address Organization Details Last Updated DateTime 4 98 % 98 % 63 /min 28640.9 28 g 16 /min 72 /min 98.3 [degF] 167.64 cm 127 mm[Hg] 73 mm[Hg] 98 mm[Hg] 64 mm[Hg] Not Available [facility] production 4 11:08:09 Social History None recorded. Functional Status None recorded. Mental Status None recorded. Family History Nothing Reported. Medical History No medical history recorded. Past Encounters Encounter ID Performer Location Encounter Start Date Encounter Closed Date Diagnosis/Indication Diagnosis SNOMED-CT Code Diagnosis ICD10 Code Diagnosis Note [id number] Shade Nolasco MD [facility] [address] [place] [address] 10/20/2024 11:08:07 10/20/2024 23:43:23 Dizziness [id number] R42 Health Concerns Section Related Observation LastModified by Organization Detai ls LastModified Time None Recorded Concern Status LastModified by Organization Details LastModified Time None Recorded Advance Directives Directive None Recorded Payers Encounter Date Sequence Insurance Name Policy Number Policy Rai Covered Member ID Rai Member ID Guarantor Name 10/20/2024 1 [facility] - DOS ON OR AFTER 2023 - DUAL ELIGIBLE - [employer] AND [employer] (MEDICARE REPLACEMENT/ADV ANTAGE - HMO) Sincere Gallardo [id number] Sincere Gallardo Notes Date Note Type Note Provider Name and Address Organization Details Recorded Time 10/20/2024 text/html [facility] Nurse Triage Notes (Ton Britt - JOJO): Reason For Request: Pts spouse reporting chills/sweats, low blood pressure, dizziness Denies: Worst Headache of life New onset of vision loss Sudden onset -unilateral weakness/gait disturbance Fall with head strike and altered LOC New onset of Slurred speech or difficulty finding words Sudden Mental status changes Head pain with fever chills and neck pain Seizure activity Chief Complaints: Hypotension, Dizziness, Fever/chills PMH: Hypertension, Diabetes Mellitus Type 2 Comments: Window Draper verified the patient's name//address and phone number. Pt's calling reporting pt with cold sweat, chills, and dizziness for the last 10 minutes. Pt's report attempted to check pt's BP but the BP cuff needs a supercharger mechanic. Pt denies chest pain or SOB, denies headache or visual changes. Education provided on the response time and the patient was advised to monitor reported s/s and seek emergency treatment if needed -Hermelindo Britt RN [employer] Organization Information for Basil Bagley Business Legal Name: [employer]? ? Address: [address] [place] [id number], Water Pollution Scientist: Jered Hinojosa MD CLIA No.: [id number] [employer] POC Test Results from Basil [facility]ley EKG (11:23:36) EKG test performed. Attachments uploaded as part of this test result can be found under Documents section. .................. .................. .................. .................. .................. .................. .................. ............... [employer] Note [facility] Pt presents complaining of vomiting and dizziness starting this morning. Pt has had 2 episodes of vomiting so far and says that he was feeling well yesterday with good intake of food and liquids and no sick contacts reported. Pt denies fever. V/S taken as listed. Pt afebrile. V/S repeated after pt had been standing for couple of minutes with drop to BP 98/64 and heart rate up from 63-72 standing. Consulted with [facility] Dr. Nolasco who asked for EKG and okayed 4 mg of oral zofran given on scene. 12 lead ekg completed and sent to [facility] for review with no concerns at this time. Reviewed red flags for ED or reevaluation. Pt encouraged to follow up with PCP. Pt education provided. .................. .................. .................. .................. .................. .................. .................. ............... [facility] Consulted: Shade Nolasco .................. .................. .................. .................. .................. .................. .................. ............... Disposition: Fulfilled Shade Nolasco MD [address] [facility],[address], [place], [address], [address] - [employer] 10/20/2024 12:50:17
[2025-01-28 00:05] LABS: Troponin-I High Sensitivity < 2.7 ng/L (<3.5-35.0)
[2025-01-28] MEDS: 0.9 % Sodium Chloride 1,000 ML 999 ML IV (00:16)
[2025-01-28 00:31] VITALS: BP 147/76; PULSE 62; RESP 21; TEMP 36.8; O2SAT 98
[2025-01-28] MEDS: iohexoL 350 MG/ML 100 ML INFUS..BTL 65 ML IV (01:24)
[2025-01-28 02:19] VITALS: BP 143/72; PULSE 60; RESP 17; TEMP 36.6; O2SAT 98
[2025-01-28 03:20] VITALS: BP 143/72; PULSE 60; RESP 17; TEMP 36.6; O2SAT 98
== END 2025-01-28 03:21 | disposition home or self-care (01) ==
PROVIDERS: Nurse Practitioner Family; Physician Assistant Medical; Emergency Provider Emergency Medicine; PCP Internal Medicine
DX: R07.89 Other chest pain (principal); Z03.818 Encounter for observation for suspected exposure to other biological agents ruled out
CPT/HCPCS: 0241U; 36415; 71046; 71260; 80048; 80076; 83735; 84484; 85025; 93005; 99284; 99285; Q9967

== ENCOUNTER → 2025-01-27 15:58 | Outpatient (BNV) | payer OTHER, SELFPAY | PROVIDERS: Emergency Provider Emergency Medicine; PCP Internal Medicine; Visit Provider Internal Medicine | DX: I44.0 Atrioventricular block, first degree (principal) | CPT/HCPCS: 93010 ==

== ENCOUNTER → 2025-01-27 16:15 | Outpatient (BNV) | payer MEDICARE, MEDICAID, SELFPAY | PROVIDERS: PCP Internal Medicine; Visit Provider Radiology Diagnostic Radiology | DX: R07.9 Chest pain, unspecified (principal) | CPT/HCPCS: 71046 ==

== ENCOUNTER → 2025-01-28 | Outpatient (BNV) | payer OTHER, SELFPAY | PROVIDERS: Emergency Provider Emergency Medicine; PCP Internal Medicine; Visit Provider General Practice | DX: R07.9 Chest pain, unspecified (principal) | CPT/HCPCS: 71260 ==